=== PATIENT | male | born 1975 | race Caucasian/White ===

== ENCOUNTER 2016-04-24 11:49 | Inpatient (IN) | payer MEDICARE, MEDICAID ==
[~2016-04-24] VITALS: Ht 170.2 cm; Wt 74.9 kg
[~2016-04-24 11:49] MED LIST: DOXY25SU PO; GLYB5 PO; INSLAN SQ; METF500T4 PO; PIOG15TA13 PO; QUET300XR PO
[2016-04-24 12:37] LABS: BASOPHILS % (AUTO) 0.3 % (0.0-2.0); HEMATOCRIT 45.7 % (41-53); HEMOGLOBIN 15.4 g/dL (13.5-17.5); LYMPHOCYTES % (AUTO) 15.1 % (22.0-44.0); MEAN CORPUSCULAR HEMOGLOBIN 30.2 pg (26.0-34.0); MEAN CORPUSCULAR HGB CONC 33.7 G/dL (31.0-37.0); MEAN CORPUSCULAR VOLUME 89 fL (80-100); MONOCYTES # (AUTO) 0.4 K/uL (0.1-1.0); MONOCYTES % (AUTO) 6.8 % (2.0-9.0); NEUTROPHILS # (AUTO) 4.9 K/uL (1.8-7.7); NEUTROPHILS % (AUTO) 76.8 % (40.0-70.0); PLATELET COUNT (AUTO) 256 K/uL (150-450); RED BLOOD CELL COUNT(AUTO) 5.12 MIL/uL (4.50-5.90); RED CELL DISTRIBUTION WIDTH 12.5 % (11.5-14.5); WHITE BLOOD COUNT (AUTO) 6.4 K/uL (4.5-11.0)
[2016-04-24 12:54] LABS: ALANINE AMINOTRANSFERASE 23 U/L (12-78); ALBUMIN 4.2 g/dL (3.4-5.0); ANION GAP 11 mmol/L (8-16); ASPARTATE AMINOTRANSFERASE 11 U/L (15-37); BILIRUBIN,TOTAL 0.7 mg/dL (0.1-1.0); CALCIUM, TOTAL 9.3 mg/dL (8.8-10.5); CARBON DIOXIDE 25 mmol/L (22-29); CHLORIDE 95 mmol/L (98-107); CREATININE 1.29 mg/dL (0.60-1.30); GLOMERULAR FILTR. RATE CALC > 60 mL/min (>60); POTASSIUM 4.3 mmol/L (3.5-5.1); SODIUM SERUM 131 mmol/L (136-145); TOTAL PROTEIN, SERUM 8.1 g/dL (6.4-8.2); UREA NITROGEN, BLOOD 18 mg/dL (7-18)
[2016-04-24] MEDS ORDERED: INSULIN REGULAR, HUMAN 100 UNITS/ML IVP ONE (13:30)
[2016-04-24] MEDS ORDERED: SODIUM CHLORIDE 0.9% 1,000 ML IV ONE (13:30)
[2016-04-24 13:57] LABS: GLUCOSE COMMENT 1 Doctor Notified; GLUCOSE,POINT OF CARE 512 MG/DL (70-110)
[2016-04-24] MEDS ORDERED: CefTRIAXone 1 GM/DEXTROSE 50 ML IV ONE (14:30)
[2016-04-24 15:46] LABS: GLUCOSE,POINT OF CARE 236 MG/DL (70-110)
[2016-04-24] MEDS ORDERED: HALOPERIDOL 5 MG TABLET PO PRN (17:30)
[2016-04-24] MEDS ORDERED: ZOLPIDEM TARTRATE 10 MG TABLET PO PRN (17:30)
[2016-04-24] MEDS ORDERED: LORazepam 2 MG TABLET PO PRN (17:30)
[2016-04-24 17:52] LABS: GLUCOSE,POINT OF CARE 253 MG/DL (70-110)
[2016-04-24 19:18] VITALS: BP 118/72
[2016-04-24] MEDS ORDERED: INFLUENZA VIRUS VACCINE QVS 2016-17 (3YR+)/PF 60 MCG/0.5 ML SYRINGE IM ONE (19:30)
[2016-04-24] MEDS ORDERED: INSULIN ASPART 100 UNITS/ML SQ PRN (20:00)
[2016-04-24] MEDS ORDERED: DEXTROSE 50%-WATER 25 GM/50 ML SYRINGE IVP PRN (20:00)
[2016-04-25 05:27] LABS: GLUCOSE,POINT OF CARE 293 MG/DL (70-110)
[2016-04-25] MEDS: INSULIN ASPART 100 UNITS/ML SQ PRN ×4 (06:52→21:43)
[2016-04-25] MEDS: BACITRACIN 28.4 GM OINTMENT TP SCH ×2 (08:19→16:27)
[2016-04-25] MEDS: BENZTROPINE MESYLATE 0.5 MG TABLET PO SCH ×2 (08:19→16:26)
[2016-04-25] MEDS: HALOPERIDOL 5 MG TABLET PO SCH ×2 (08:19→16:26)
[2016-04-25 09:00] VITALS: BP 129/81
[2016-04-25 17:05] VITALS: BP 112/68
[2016-04-25] MEDS ORDERED: INSULIN DETEMIR 100 UNITS/ML SQ SCH (21:00)
[2016-04-26 05:32] LABS: GLUCOSE,POINT OF CARE 253 MG/DL (70-110)
[2016-04-26] MEDS: INSULIN ASPART 100 UNITS/ML SQ PRN ×4 (06:37→21:20)
[2016-04-26 06:55] LABS: CHOL/HDL RATIO 6.8 (4.2-7.3); CREATINE KINASE, TOTAL 58 U/L (39-308); THYROID STIMULATING HORMONE 0.69 uIU/mL (0.36-3.74)
[2016-04-26] MEDS: BENZTROPINE MESYLATE 0.5 MG TABLET PO SCH ×2 (08:09→16:47)
[2016-04-26] MEDS: HALOPERIDOL 5 MG TABLET PO SCH ×2 (08:09→16:47)
[2016-04-26] MEDS: BACITRACIN 28.4 GM OINTMENT TP SCH ×2 (08:10→16:48)
[2016-04-26 09:41] VITALS: BP 131/76
[2016-04-26 16:10] VITALS: BP 103/72
[2016-04-26] MEDS ORDERED: INSULIN DETEMIR 100 UNITS/ML SQ SCH (21:00)
[2016-04-27 06:07] LABS: GLUCOSE,POINT OF CARE 277 MG/DL (70-110)
[2016-04-27] MEDS: INSULIN ASPART 100 UNITS/ML SQ PRN (07:06)
[2016-04-27] MEDS ORDERED: HALO5 PO (07:40)
[2016-04-27] MEDS ORDERED: BENZ0.5T6 PO (07:40)
[2016-04-27] MEDS ORDERED: INSU100V12 SQ (07:42)
[2016-04-27] MEDS ORDERED: BACI120O TP (07:44)
[2016-04-27] MEDS: BENZTROPINE MESYLATE 0.5 MG TABLET PO SCH (08:49)
[2016-04-27] MEDS: HALOPERIDOL 5 MG TABLET PO SCH (08:49)
[2016-04-27] MEDS: BACITRACIN 28.4 GM OINTMENT TP SCH (08:49)
[2016-04-27 08:50] VITALS: BP 112/70
[2016-04-27 13:07] LABS: HEPATITIS Bs ANTIGEN SCREEN P Negative (Negative); HEPATITIS C AB SCREEN <0.1 s/co ratio (0.0-0.9)
[2016-05-25 11:07] LABS: GLUCOSE COMMENT 1 Received Meds; GLUCOSE,POINT OF CARE 434 MG/DL (70-110)
[2016-05-25 11:07] LABS: GLUCOSE COMMENT 1 Doctor Notified; GLUCOSE,POINT OF CARE 361 MG/DL (70-110)
[2016-05-25 11:07] LABS: GLUCOSE COMMENT 1 Received Meds; GLUCOSE,POINT OF CARE 430 MG/DL (70-110)
[2016-05-25 11:07] LABS: GLUCOSE COMMENT 1 Received Meds; GLUCOSE,POINT OF CARE 251 MG/DL (70-110)
[2016-05-25 11:07] LABS: GLUCOSE COMMENT 1 Received Meds; GLUCOSE,POINT OF CARE 251 MG/DL (70-110)
== END 2016-04-27 09:05 | DRG 885 ==
LOC: EEVIPCON 11:51 → EMS 11:51 → 3EX 17:33 → EMS 18:25
PROVIDERS: ADMIT Psychiatry & Neurology Psychiatry; ATTEND Psychiatry & Neurology Psychiatry
DX: F20.1 Disorganized schizophrenia (principal); R45.851 Suicidal ideations; E11.9 Type 2 diabetes mellitus without complications; I10 Essential (primary) hypertension; E78.00 Pure hypercholesterolemia, unspecified; E78.5 Hyperlipidemia, unspecified; Z91.14 Patient's other noncompliance with medication regimen; Z28.21 Immunization not carried out because of patient refusal
CPT/HCPCS: 80074; 82306; 82607; 82746; 82962; 83036; 83735; 84439; 84443; 86592; 96365; 96375; 99285; G0480; J0696; J1815; J7030